=== PATIENT | male | born 1940 | race Caucasian/White ===

== ENCOUNTER → 2019-05-28 | Outpatient (CLI) | payer MEDICARE, OTHER ==
--- NOTE | 2019-05-28 09:08 | RADIOLOGY REPORT (SQ) ---
EXAM DESCRIPTION: RANCHO SWALLOW COMPLETED DATE/TIME: 05/28/2019 8:55 am REASON FOR STUDY: (R13.12)DYSPHAGIA, OROPHARYNGEAL PHASE G20 PARKINSON'S DISEASE R13.12 DYSPHAGIA, OROPHARYNGEAL PHASE HISTORY OF STROKE COMPARISON: None. TECHNIQUE: Videofluoroscopic swallowing examination was performed in conjunction with speech patholo gy. Videofluoroscopic imaging was obtained and reviewed and these are the findings: RADIATION DOSE: Fluoro time 1.23 minutes 1 images saved to PACS. LIMITATIONS: None FINDINGS: The patient was brought into the fluoro room and placed upright on a modified barium swall ow chair. The patient was then given multiple consistencies mixed with barium to swallow under live fluoroscopic video guidance. According to the Speech Pathologist there was no penetration or aspirat ion. Please refer to the speech pathology report for further details. IMPRESSION: NO EVIDENCE OF PENETRATION OR ASPIRATION. PLEASE SEE SPEECH PATHOLOGIST REPORT FOR OTHER FINDINGS AND RECOMMENDATIONS. COMMENT: None Quality ID [id number]: Final reports for procedures using fluoroscopy that document radiation exposure francisco renato, or exposure time and number of fluorographic images (if radiation exposure indices are not avail able) TECHNICAL DOCUMENTATION: JOB ID: [id number] [employer]- All Rights Reserved Reading location - IP/workstation name: [id number]
--- NOTE | 2019-05-28 09:55 | ST Modified Barium Swallow ---
Recommendation - Recommendations Recommendations: No swallowing deficits observed. Recommend patient continue with speech therapy for speech and language function, no indication for additional swallowing treatment. Medical Diagnoses - Medical Diagnoses Medical Diagnosis Description & ICD-10 Code(s): dysphagia R13.12 Other Medical Diagnoses/Co-Morbidities: history of stroke and Parkinson's disease ST Modified Barium Swallow - General Date: 05/28/19 Referring Physician: Dr. Finney Date of Onset: 03/07/19 - approximate onset date Reason for Referral: history of swallowing difficulty after stroke - History History obtained from: Patient - Patient reports that he previously lived in [place] where he had a stroke early in March in 2019. Patient endorses that he had a CT scan in hospital, but not sure of specific location of stroke. Following acute intervention, patient had 6 weeks of multidisciplinary rehabilitation including speech, occupational, and physical therapy. Mr. Adams reported that speech intervention focused on speech/language and some type of vital stim that involved "leads on neck." Mr. Adams reports no residual weakness following his stroke. Other pertinent medical history includes Parkinson's Disease (diagnosed 7 years ago), hearing loss, with hearing aids, and depression. He endorses no coughing or difficulty swallowing. He has been receiving outpatient speech services for speech and language function. Medications: Sentraline, Carbidopa-Levodopa Allergies: none reported - Functional Status Prior Functional Status: INDEPENDENT: feeding - independent - Subjective Patient/caregiver goal(s): safe swallow Cognitive-Linguistic Function: Functional Speech Intelligibility: Mildly dysarthric Current Nutritional Means: PO Current PO diet: Regular Current symptoms: other - high risk due to history of stroke and Parkinson's Pain: Patient reports, 0/5 - Objective Assessment: Upright, Left Lateral - Food Trials Used Food trials used: Thin liquids, Pureed, Regular The patient: Was Able to Self Feed - Oral-Motor Skills Velo-pharyngeal function: Unremarkable - Assessment Oral prep: Normal Labial closure: Adequate Leakage: None Mastication: Adequate Lingual Movement: Normal Oral stage: Normal for this Procedure - Pharyngeal Stage Initiation of Pharyngeal Stage Reflex: Normal Decreased laryngeal elevation: No Reduced Velopharyngeal Closure: no Reduced pressure generation: No reduced tongue-based retraction: No Pre-swallow pooling in valleculae: Mild Pre-Swallow pooling in pyriforms: Mild - on only 1 of the swallows Reduced Thyro-Hyoid approximation: No Reduced epiglottic excursion: No Reduced pharyngeal peristalsis/contraction: No Post-swallow residulas vallecular: None Post-Swallow residuals in pyriforms: None Post-Swallow Residuals: no residuals Reduced Cricopharyngeal opening: No - Fall Risk Assessment Medications/Conditions that increase fall risks include: Antidepressants, sedatives, anti-arrhythmic, diuretic, benzodiazipenes, neuroleptics. BP regulation problems, cardiac problems, balance or gait deficits, neurological problems. Fall Risk Actions Taken: No action needed - Behavioral Observations During evaluation process patient: was pleasant, was cooperative, able to answer questions - Treatment / Educational Needs: Treatment/Education Needs: Treatment consisted of patient education on the role of the Speech Pathologist. Patient's plan of care and golas were communicated as well as scheduling and attendance policies. Recommendations for initial home program were shared. Patient demonstrated understanding and verbalized agreement. - Impression/Summary Laryngeal Penetration: No Tracheal Aspiration: no Patient presents with: Normal swallow at eval Risk of Aspiration: Minimal Evaluation and Findings: No oral or pharyngeal swallowing deficits seen this day, no aspiration or penetration observed. - Recommendations Solid diet recommendations: Regular Liquid Diet Modification: Thin Pt/Family education and followup with MD: Yes Dysphagia therapy with RECRUITMENT SPECIALIST: no, f/u with current thera. - regarding speech production Recommended techniques: Fully Upright During Meal, Small Bites and Sips Information, Precautions and Recommendations: Patient (Written), Patient (Verbal) - Plan of Care Strategies to optimize patient understanding include:: ongoing assessment of educational needs, implementation of educational strategies, and re-education. - - -: Thank you for the opportunity to work with this patient and his/her family. Should you have any questions about this patient's plan or progress, I can be reached at [phone].
== END ==
LOC: RAD 08:20
PROVIDERS: ATTEND Internal Medicine
DX: G20 Parkinson's disease (principal); R49.8 Other voice and resonance disorders; R47.01 Aphasia; R13.12 Dysphagia, oropharyngeal phase
CPT/HCPCS: 74230